=== PATIENT | female | born 1940 | race Caucasian/White ===

== ENCOUNTER 2017-07-30 02:20 | Inpatient (IN) ==
[2017-07-30] MEDS ORDERED: ONDANSETRON 4 MG/2 ML VIAL IV PRN (04:23)
[2017-07-30 04:51] LABS: ABG Base Excess -15.2 MMOL/L (-2.5-2.5); ABG HCO3 12.8 MMOL/L (20-26); ABG Oxygen Saturation 99.6 % (95-100); ABG PCO2 30.2 MM HG (35-48); Allen Test Positive; Pt O2 Delivery Device Ventilator
[2017-07-30 04:54] LABS: ABG PH 7.201 (7.35-7.45)
[2017-07-30] MEDS: DOPamine 800 MG/250 ML PREMIX IV SCH ×5 (05:30→22:18)
[2017-07-30] MEDS: SODIUM CHLORIDE 0.9% 1,000 ML IV SCH ×2 (05:30→19:03)
[2017-07-30] MEDS ORDERED: SODIUM CHLORIDE 0.9% 500 ML IV ONE ×2 (05:40→21:05)
[2017-07-30 06:02] LABS: Basophils # 0.2 10*3/uL (0.0-0.2); Basophils % 0.5 % (0.0-0.8); Hematocrit 31.3 VOL% (35.7-47.0); Immature Granulocytes % 11.3 %; Immature Granulocytes Absolute 3.77 #; Lymphocytes # 4.1 10*3/uL (1.4-4.0); Lymphocytes % 12.2 % (21.3-54.2); Mean Corpuscular HGB Conc 31.9 GM/DL (32-36); Mean Corpuscular Hemoglobin 30 PG (27-34); Mean Corpuscular Volume 94.6 FL (87-102); NRBC # 0.21 10*3/uL; Neutrophils # 17.4 10*3/uL (1.4-7.4); Red Blood Count 3.31 MC/CUMM (3.8-5.5); Red Cell Distribution Width 17.7 % (9.3-17.3); White Blood Count 33.4 T/CUMM (4-12)
[2017-07-30] MEDS ORDERED: SODIUM BICARBONATE 50 MEQ/50 ML VIAL IV ONE ×2 (06:04→22:56)
[2017-07-30] MEDS ORDERED: SODIUM BICARBONATE 50 MEQ/50 ML SYRINGE IV ONE ×3 (06:05→22:57)
[2017-07-30] MEDS: NOREPINEPHRINE 8 MG in SODIUM CHLORIDE 0.9% 242 ML IV SCH ×3 (06:15→14:22)
[2017-07-30 06:26] LABS: Platelet Count 63 T/CUMM (130-400)
[2017-07-30 06:47] LABS: Band Neutrophils 6 % (0-10); Burr Cells Slight; Hypochromasia 1+; Lymphocytes 13 % (20-55); Myelocytes 4 %; Platelet Estimate Decreased; Segmented Neutrophils 58 % (50-85); Total Cells Counted 100
[2017-07-30 06:48] LABS: Giant Platelets Few; Ovalocytes Slight; Polychromasia Slight
[2017-07-30] MEDS ORDERED: SODIUM CHLORIDE 0.9% 1,000 ML IV ONE (06:53)
[2017-07-30 07:17] LABS: Alanine Aminotransferase 595 U/L (13-56); Albumin 2.9 G/DL (3.4-5.0); Alkaline Phosphatase 276 U/L (45-117); Aspartate Amino Transferase 1287 U/L (0-37); Blood Urea Nitrogen 32 MG/DL (7-18); Calcium 7.2 MG/DL (8.5-10.1); Glucose 113 MG/DL (74-106); Magnesium 2.2 MG/DL (1.8-2.4); Osmolality,Calculated 282.7 MOS/KG (273-304); Sodium 138 MMOL/L (136-145); Total Protein 5.8 G/DL (6.4-8.3)
[2017-07-30 07:19] LABS: Troponin I Only 0.118 NG/ML (0.00-0.045)
[2017-07-30] MEDS ORDERED: VANCOMYCIN INJ 1,000 MG in SODIUM CHLORIDE 0.9% 250 ML IV ONE (08:30)
[2017-07-30] MEDS: SODIUM POLYSTYRENE SULFATE 15 GM/60 ML BOTTLE PO SCH ×2 (08:44→16:51)
[2017-07-30] MEDS: metroNIDAZOLE INJ 500 MG in PREMIX 1 EACH IV SCH ×3 (08:45→22:13)
[2017-07-30] MEDS ORDERED: PANTOPRAZOLE 40 MG TABLET PO SCH (09:00)
[2017-07-30] MEDS ORDERED: PANTOPRAZOLE 40 MG VIAL IV SCH (09:30)
[2017-07-30 09:40] LABS: ABG Base Excess -11.1 MMOL/L (-2.5-2.5); ABG HCO3 15.7 MMOL/L (20-26); ABG Oxygen Saturation 99.6 % (95-100); ABG PCO2 29.5 MM HG (35-48); ABG PH 7.296 (7.35-7.45); ABG TCO2 13.4 MMOL/L (23-27)
[2017-07-30] MEDS ORDERED: NOREPINEPHRINE 4 MG/4 ML VIAL IV ONE (09:41)
[2017-07-30] MEDS: MORPHINE 2 MG/1 ML SYRINGE IV PRN ×2 (09:55→23:56)
[2017-07-30 10:11] LABS: Potassium 5.1 MMOL/L (3.5-5.1)
[2017-07-30 10:20] LABS: Troponin I Only 0.246 NG/ML (0.00-0.045)
[2017-07-30 10:25] LABS: Apearance,Urine CLOUDY (Clear); Bacteria,Urine Occasional /HPF (Few); Bilirubin,Urine Negative (Negative); Blood, Urine Large mg/dL (Negative); Glucose,Urine (UA) 50 mg/dL (Negative); Hyaline Casts,Urine 54 /LPF (0-3); Ketones,Urine Negative (Negative); Mucus,Urine Few /LPF (Occasional); Nitrite,Urine Negative (Negative); Protein,Urine >=500 MG/DL; RBC,Urine 800 /HPF (0-4); Squamous Epithelial Cell,Urine Occasional /HPF (0-10); Urine Color Amber (Yellow); Urine Specific Gravity 1.032 (1.001-1.035); Urine Urobilinogen < 2.0 EU/DL (0.2-1.0); WBC,Urine 24 /HPF (0-6)
[2017-07-30] MEDS ORDERED: PROPOFOL 1,000 MG/100 ML BOTTLE IV ONE (13:02)
[2017-07-30] MEDS ORDERED: PROPOFOL 1,000 MG/100 ML BOTTLE IV SCH (13:30)
[2017-07-30 15:23] LABS: CKMB % 1.6 %
[2017-07-30 15:27] LABS: Troponin I Only 0.625 NG/ML (0.00-0.045)
[2017-07-30] MEDS ORDERED: SODIUM CHLORIDE 0.9% 250 ML IV ONE ×2 (19:06→20:05)
[2017-07-30] MEDS: PHENYLEPHRINE DRIP 40 MG/250 ML PREMIX IV SCH (21:10)
[2017-07-30] MEDS ORDERED: PHENYLEPHRINE DRIP 40 MG/250 ML PREMIX IV ONE (21:11)
[2017-07-30 22:27] LABS: ABG Base Excess -22.1 MMOL/L (-2.5-2.5); ABG HCO3 6.4 MMOL/L (20-26); ABG Oxygen Saturation 97.9 % (95-100); ABG PCO2 22.7 MM HG (35-48); ABG PO2 162.3 MM HG (80-95); ABG TCO2 7.1 MMOL/L (23-27); Allen Test Positive; Pt O2 Delivery Device Ventilator
[2017-07-30 22:29] LABS: ABG PH 7.066 (7.35-7.45)
[2017-07-30] MEDS ORDERED: SODIUM BICARB INJ 100 MEQ in SODIUM CHLORIDE 0.45% 1,000 ML IV SCH (23:00)
[2017-07-30] MEDS ORDERED: DEXTROSE 50% 25 GM/50 ML VIAL IV ONE (23:28)
[2017-07-30] MEDS: DEXTROSE 50% 25 GM/50 ML VIAL IV PRN (23:30)
[2017-07-31] MEDS ORDERED: NOREPINEPHRINE 16 MG in SODIUM CHLORIDE 0.9% 234 ML IV SCH (00:30)
[2017-07-31] MEDS: DOPamine 800 MG/250 ML PREMIX IV SCH (00:46)
[2017-07-31] MEDS: PHENYLEPHRINE DRIP 40 MG/250 ML PREMIX IV SCH (01:40)
[2017-07-31 02:41] LABS: ABG Base Excess -24.8 MMOL/L (-2.5-2.5); ABG HCO3 6.3 MMOL/L (20-26); ABG Oxygen Saturation 90.8 % (95-100); ABG PCO2 32.4 MM HG (35-48); ABG PO2 95.7 MM HG (80-95); ABG TCO2 6.5 MMOL/L (23-27)
[2017-07-31 02:42] LABS: ABG PH 6.887 (7.35-7.45)
[2017-07-31] MEDS ORDERED: SODIUM BICARBONATE 50 MEQ/50 ML VIAL IV ONE (02:48)
[2017-07-31] MEDS ORDERED: SODIUM BICARBONATE 50 MEQ/50 ML SYRINGE IV ONE (02:49)
[2017-07-31] MEDS ORDERED: DEXTROSE 10% 250 ML BAG IV SCH (03:00)
[2017-07-31] MEDS: DEXTROSE 50% 25 GM/50 ML VIAL IV PRN ×4 (04:41→04:46)
[2017-07-31 04:50] VITALS: BP 46/27
[2017-07-31] MEDS ORDERED: PIPERACILLIN/TAZOBACTAM 4,500 MG in SODIUM CHLORIDE 0.9% 100 ML IV SCH (09:00)
== END 2017-07-31 03:42 | disposition expired | DRG 871 ==
LOC: EDUNIT# → EDBD → N.ED 02:20 → N.EDINP 04:23 → N.ICU 04:52
PROVIDERS: ADMIT Family Medicine; ATTEND Family Medicine